=== PATIENT | female | born 1935 | race Caucasian/White ===

== ENCOUNTER → 2017-02-12 08:40 | Outpatient (CLI) | payer MEDICARE ==
[2011-10-13 15:35] VITALS: BMI 38.8
--- NOTE | ~2017-02-12 | EC ---
PATIENT:MARÍA DESOUZA DATE OF SERVICE: 02/12/17 SEX: F MEDICAL RECORD: [id number] DATE OF : [birth year] LOCATION:[facility] AGE OF PATIENT: 81 ADMISSION DATE: 02/12/17 REFERRING PHYSICIAN: INTERPRETING PHYSICIAN: VENESSA DONG M.D. ECHOCARDIOGRAM REPORT ECHO CHARGES 4 ECHO COMPLETE CLINICAL DIAGNOSIS: CHEST PAIN HX OF DM ECHOCARDIOGRAPHIC MEASUREMENTS (adult normal given) AC root (d.<3.7cm) 3.0 LV Septum d (<1.2 cm> 1.7 Valve Excursion 1.3 LV Septum (systole) 2.0 Left Atria (s.<4.0cm> 3.1 LVPW d(<1.2cm) 1.5 RV (d.<2.3cm) 3.9 LVPW (sytole) 1.7 LV diastole(<5.6CM) 5.6 MV E-F(>70mm/sec) LV systole 3.7 LVOT Diameter 1.1 MV exc.(>10mm) 1.7 Est.ejection fraction (50-75%) Pericardial Effusion N DOPPLER: LVIT A 112 E 107 LA RVSP 31 LVOT 173 AOP1/2T Asc. Ao 216 RVOT 95 RA PA 139 AV Gradient Peak 18.73 AV Mean 10.12 AV Area 1.2 MV Gradient Peak 5.52 MV Mean 2.89 MV Area COMMENTS: Vp Director Of Creative Strategy: Bulmaro HAYES Advertising Production Manager:2 Dr. Dong TAPE# PACS DATE OF SERVICE: 02/12/2017 REFERRING PHYSICIAN: Kiet Holliday DO INDICATION: Chest pain. DESCRIPTION: Left ventricle demonstrates left ventricular hypertrophy. No wall motion abnormalities are seen. Estimated ejection fraction is 55%. Mitral valve is structurally normal. There is mild regurgitation noted. Left atrium is normal size. The aortic valve leaflets are thickened. There is no evidence ECHOCARDIOGRAM REPORT [id number] MARÍA DESOUZA of insufficiency. Right ventricle is mildly dilated. Tricuspid valve is normal. There is mild regurgitation noted. Right ventricular systolic pressure is elevated at 31 mmHg. There is no pericardial effusion seen. IMPRESSION: 1. Left ventricular hypertrophy with preserved ejection fraction of 55%. 2. Mild mitral regurgitation. 3. Aortic valve sclerosis without stenosis. 4. Mild tricuspid regurgitation. TRANSINT:[id number] Voice Confirmation ID: [id number] DOCUMENT ID: [id number] VENESSA DONG M.D. CC: [id number] DICTATION DATE: 02/13/17 0753 [employer] T[employer]ER: 02/13/17 1504 [facility] CLI 02/12/17 [place] [id number]
== END | disposition home or self-care (01) ==
LOC: D.ECHO 08:40
DX: R07.2 Precordial pain (principal)